=== PATIENT | male | born 1960 | race Caucasian/White ===

== ENCOUNTER → 2017-09-23 | Outpatient (CLI) | payer OTHER ==
--- NOTE | 2017-09-23 10:45 | MR ---
EXAMINATION TYPE: MR cervical spine wo con DATE OF EXAM: 09/23/2017 COMPARISON: 01/03/2016 HISTORY: Pain TECHNIQUE: Multiplanar, multisequence images of the cervical spine were acquired. C2-C3: No disc herniation or canal stenosis. Neural foramina C3-C4: Posterior spondylosis with uncovertebral joint hypertrophy and right. Minimal right paracentra l disc bulging but no C4-C5: Focal right paracentral disc herniation encroaches upon the anterior margin the spinal cord. T his appears progressed from the prior exam C5-C6: Degenerative disc disease with uncovertebral joint hypertrophy and broad-based disc bulging. M oderate bilateral foraminal encroachment. No Canal stenosis. C6-C7: Central disc bulging but no canal stenosis. Mild right-sided foraminal encroachment. C7-T1: No evidence for degenerative disc disease. No disc bulge/herniation or protrusion. No Canal stenosis. Foramina are patent bilaterally. Cervical segments are intact. There is normal alignment. Assessment spinal cord is limited due to ar tifact. No obvious abnormal signal and axial imaging. There is multilevel mild degenerative disc dis ease. Craniovertebral junction relationships are within normal limits. IMPRESSION: 1. Interval development of a right paracentral disc herniation C4-C5 which abuts the anterior margin the spinal cord. 2. Disc bulging C5-6 and C6-C7 are stable with no canal stenosis. 3. Multilevel degenerative disc disease and foraminal encroachment.
== END | disposition home or self-care (01) ==
LOC: RADMRIMAIN 09:59
PROVIDERS: ATTEND Psychiatry & Neurology Neurology
DX: M50.221 Other cervical disc displacement at C4-C5 level (principal); M50.322 Other cervical disc degeneration at C5-C6 level
CPT/HCPCS: 72141